=== PATIENT | female | born 1995 | race Hispanic/Latino ===

== ENCOUNTER 2017-11-07 16:03 | Outpatient (CLI) | payer OTHER, SELFPAY | END 2017-11-07 16:04 | disposition home or self-care (01) | LOC: BICRAD 16:03 | PROVIDERS: ATTEND Family Medicine | DX: M25.552 Pain in left hip (principal) ==

== ENCOUNTER 2018-08-08 01:56 | Emergency (ER) | payer OTHER, SELFPAY ==
[2018-08-08 02:31] LABS: #Basophils 0.1 thou/uL (0.0-0.2); #Eosinphils 0.2 thou/uL (0.0-0.7); #Lymphocytes 3.8 thou/uL (1.20-3.40); #Monocytes 0.6 thou/uL (0.11-0.59); #Neutrophils 11.1 thou/uL (1.40-6.50); %Basophils 0.9 % (0.0-1.0); %Eosinophils 1.2 % (0.0-10.0); %Lymphocytes 23.8 % (21.0-51.0); %Neutrophils 70.1 % (42.0-75.0); Hemoglobin 13.3 g/dL (12.0-16.0); Mean Corpuscular Hemoglobin 25.2 pg (27.0-31.0); Mean Corpuscular Volume 78.7 fL (78.0-98.0); Platelet Count 299 thou/uL (130-400); Red Blood Cell (RBC) Count 5.27 mill/uL (4.20-5.40); White Blood Cell (WBC) Count 15.8 thou/uL (4.8-10.8)
[2018-08-08 02:42] LABS: Bilirubin Negative (Negative); Blood, Urine Trace (Negative); Clarity CLEAR (Clear); Glucose, Urine (Dipstick) Negative (Negative); Leukocyte Negative (Negative); Nitrite Negative (Negative); Protein, Urine (Dipstick) Negative (Neg-Trace); Urobilinogen 0.2 mg/dL (0.2-1.0)
[2018-08-08] MEDS ORDERED: Ketorolac Tromethamine 30 MG/ML VIAL ONE (02:42)
[2018-08-08 02:45] LABS: Bacteria/HPF Rare-Few HPF (None Seen); Hyaline Casts/LPF 0-3 HYALINE CAST LPF (0-3 Hyaline); Squamous Epithelial 0-3 HPF (0-3); WBC/HPF 0-3 HPF (0-3)
[2018-08-08 02:50] LABS: ALT (SGPT) 39 U/L (8-55); AST (SGOT) 26 U/L (5-34); Albumin 3.7 g/dL (3.5-5.0); Alkaline Phosphatase 120 U/L (40-150); Anion Gap 11 mmol/L (10-20); BUN (Urea Nitrogen) 10 mg/dL (7.0-18.7); Bilirubin, Total 0.4 mg/dL (0.2-1.2); Calc. Creatinine Clearance 0 mL/min (70-130); Calcium 9.5 mg/dL (7.8-10.44); Carbon Dioxide 27 mmol/L (22-29); Chloride 103 mmol/L (98-107); Estimated GFR-MDRD Greater than 90; Globulin 4.2 g/dL (2.4-3.5); Glucose 121 mg/dL (70-105); Potassium 4.4 mmol/L (3.5-5.1); Protein, Total 7.9 g/dL (6.0-8.3); Sodium 137 mmol/L (136-145)
--- NOTE | 2018-08-08 08:43 | CT ---
PRELIMINARY REPORT/[facility]/EMERGENTY AFTER-HOURS PROCEDURE CT Abdomen and Pelvis Without Intravenous Contrast EXAM DATE/TIME: 08/08/2018 2:31 AM CLINICAL HISTORY: 23 years old, female; Abdominal pain; Right flank pain that started tonight. Pain after urination. No burning with urination. No fever / chills. No past HX renal stones. TECHNIQUE: Axial computed tomography images of the abdomen and pelvis without intravenous contrast. Coronal reformatted images were created and reviewed. COMPARISON: No relevant prior studies available. FINDINGS: Lower thorax: No acute findings. ABDOMEN: Liver: Normal. No mass. Gallbladder and bile ducts: Normal. No calcified stones. No ductal dilation. Pancreas: Normal. No ductal dilation. Spleen: Normal. No splenomegaly. Adrenals: Normal. No mass. Kidneys and ureters: Normal. No hydronephrosis. No calcified renal or ureteral stones. Stomach and bowel: Normal. No obstruction. No mucosal thickening. Appendix: Normal appendix. PELVIS: Bladder: Unremarkable as visualized. Reproductive: Unremarkable as visualized. ABDOMEN and PELVIS: Intraperitoneal space: Normal. No free air. No significant fluid collection. Bones/joints: No acute fracture. No dislocation. Soft tissues: Posterior subcutaneous edema in the lumbar region. Bilateral areas of subcutaneous dimitri a. Vasculature: Normal. No abdominal aortic aneurysm. Lymph nodes: Normal. No enlarged lymph nodes. IMPRESSION: No acute intra-abdominal or pelvic process. Thank you for allowing us to participate in the care of your patient. Dictated and Authenticated by: Dominick Espinosa MD 08/08/2018 3:11 AM Central Time ([place]) FINAL REPORT CT ABDOMEN AND PELVIS WITHOUT IV CONTRAST: I agree with the preliminary report given by Dr. Dominick Espinosa of [facility]. POS: [facility]
== END 2018-08-08 04:10 | disposition home or self-care (01) ==
LOC: ERS 01:56
DX: R10.9 Unspecified abdominal pain (principal)
CPT/HCPCS: 74176; 80053; 81003; 81015; 85025; 96361; 96374; J1885

== ENCOUNTER 2019-05-29 20:56 | Emergency (ER) | payer SELFPAY ==
[2019-05-29 21:59] LABS: #Basophils 0.1 thou/uL (0.0-0.2); #Eosinphils 0.1 thou/uL (0.0-0.7); #Lymphocytes 3.1 thou/uL (1.20-3.40); #Monocytes 0.6 thou/uL (0.11-0.59); #Neutrophils 10.5 thou/uL (1.40-6.50); %Basophils 0.4 % (0.0-1.0); %Lymphocytes 21.4 % (21.0-51.0); %Neutrophils 73.1 % (42.0-75.0); Hemoglobin 11.9 g/dL (12.0-16.0); Mean Corpuscular HGB CONC 33.5 g/dL (32.0-36.0); Mean Corpuscular Hemoglobin 25.5 pg (27.0-31.0); Mean Corpuscular Volume 76.2 fL (78.0-98.0); Platelet Count 290 thou/uL (130-400); RBC Distribution Width 14.3 % (11.5-14.5); Red Blood Cell (RBC) Count 4.67 mill/uL (4.20-5.40); White Blood Cell (WBC) Count 14.4 thou/uL (4.8-10.8)
[2019-05-29] MEDS ORDERED: HYDROcodone/Acetaminophen 10/325 mg Tablet ONE (22:06)
--- NOTE | 2019-05-29 22:14 | RAD ---
Chest one view HISTORY: Chest pain. Abscess. FINDINGS: Cardiac silhouette is magnified by projection. Pulmonary vasculature is unremarkable. Media stinum is midline. No lobar consolidation or evidence of pneumothorax. IMPRESSION: No active cardiopulmonary abnormalities are demonstrated.
[2019-05-29 22:23] LABS: ALT (SGPT) 21 U/L (8-55); AST (SGOT) 14 U/L (5-34); Albumin 3.6 g/dL (3.5-5.0); Alkaline Phosphatase 123 U/L (40-150); Anion Gap 12 mmol/L (10-20); BUN (Urea Nitrogen) 12 mg/dL (7.0-18.7); Bilirubin, Total 0.2 mg/dL (0.2-1.2); Calc. Creatinine Clearance 0 mL/min (70-130); Calcium 9.4 mg/dL (7.8-10.44); Carbon Dioxide 26 mmol/L (22-29); Chloride 102 mmol/L (98-107); Estimated GFR-MDRD 73; Globulin 3.9 g/dL (2.4-3.5); Glucose 99 mg/dL (70-105); Lipase 21 U/L (8-78); Potassium 3.4 mmol/L (3.5-5.1); Protein, Total 7.5 g/dL (6.0-8.3); Sodium 137 mmol/L (136-145)
[2019-05-29 22:28] LABS: BHCG - Serum Negative (NEGATIVE); Pregs Control Background? CLEAR/WHITE (CLR/WHITE); Pregs Control Bar Appear? YES (CONTROL BAR)
[2019-05-30] MEDS ORDERED: Sulfameth/Trimethoprim DS 800-160mg TAB ONE (00:11)
== END 2019-05-30 00:20 | disposition home or self-care (01) ==
LOC: ERS 20:56
DX: L02.416 Cutaneous abscess of left lower limb (principal); F17.210 Nicotine dependence, cigarettes, uncomplicated
CPT/HCPCS: 71045; 80053; 82550; 83690; 84484; 84703; 85025; 93005

== ENCOUNTER 2019-05-30 23:49 | Observation (INO) | payer SELFPAY ==
[2019-05-31 01:46] LABS: #Basophils 0.1 thou/uL (0.0-0.2); #Eosinphils 0.1 thou/uL (0.0-0.7); #Monocytes 0.7 thou/uL (0.11-0.59); %Basophils 0.6 % (0.0-1.0); %Eosinophils 0.6 % (0.0-10.0); %Lymphocytes 25.4 % (21.0-51.0); %Monocytes 4.2 % (0.0-10.0); %Neutrophils 69.2 % (42.0-75.0); Hemoglobin 12.2 g/dL (12.0-16.0); Mean Corpuscular HGB CONC 33.7 g/dL (32.0-36.0); Mean Corpuscular Hemoglobin 26.1 pg (27.0-31.0); Mean Corpuscular Volume 77.5 fL (78.0-98.0); Mean Platelet Volume 7.5 fL (7.4-10.4); Platelet Count 320 thou/uL (130-400); RBC Distribution Width 14.4 % (11.5-14.5); Red Blood Cell (RBC) Count 4.66 mill/uL (4.20-5.40); White Blood Cell (WBC) Count 15.9 thou/uL (4.8-10.8)
[2019-05-31 02:12] LABS: ALT (SGPT) 21 U/L (8-55); AST (SGOT) 15 U/L (5-34); Albumin 3.6 g/dL (3.5-5.0); Alkaline Phosphatase 124 U/L (40-150); Anion Gap 14 mmol/L (10-20); BUN (Urea Nitrogen) 10 mg/dL (7.0-18.7); Bilirubin, Total 0.2 mg/dL (0.2-1.2); Calc. Creatinine Clearance 0 mL/min (70-130); Calcium 9.8 mg/dL (7.8-10.44); Carbon Dioxide 25 mmol/L (22-29); Chloride 102 mmol/L (98-107); Estimated GFR-MDRD 63; Glucose 88 mg/dL (70-105); Potassium 3.9 mmol/L (3.5-5.1); Protein, Total 7.6 g/dL (6.0-8.3); Sodium 137 mmol/L (136-145)
[2019-05-31] MEDS ORDERED: Vancomycin HCl 1.5 GM in Sodium Chloride 0.9% 250 ML 300 ML IVPB SCH (03:30)
[2019-05-31] MEDS ORDERED: Piperacillin/Tazobactam 4.5 GM in Sodium Chloride 0.9% 100 ML IVPB SCH (03:30)
[2019-05-31 07:13] VITALS: BMI 51.2
[2019-05-31] MEDS ORDERED: Senokot S 8.6-50 MG TAB PO PRN (11:46)
[2019-05-31] MEDS ORDERED: Guaifenesin DM 100-10/5 ML UDCUP PO PRN (11:46)
[2019-05-31] MEDS ORDERED: Morphine 2 MG/ML SYRINGE SLOW IVP PRN (11:47)
--- NOTE | 2019-05-31 13:41 | ULT ---
EXAM: Soft tissue ultrasound of the left comer HISTORY: Open wound anterior to the comer COMPARISON: None FINDINGS: Diffuse soft tissue swelling is seen. Edema is seen within the soft tissues. No focal fluid collection is identified. IMPRESSION: Edema without focal drainable fluid collection.
[2019-05-31] MEDS: Sodium Chloride 0.9% 1,000 ML IV SCH ×2 (14:17→22:45)
[2019-05-31] MEDS: Piperacillin/Tazobactam 3.375 GM in Sodium Chloride 0.9% 100 ML IVPB SCH ×3 (14:29→23:51)
[2019-05-31] MEDS: Ibuprofen 200 MG TAB PO SCH ×2 (14:34→21:24)
--- NOTE | 2019-05-31 15:13 | HP ---
REASON FOR ADMISSION: Left knee abscess with cellulitis and failed outpatient treatment. HISTORY OF PRESENTING ILLNESS: The patient gives history of having developed a pimple like small nodule beneath her left knee. This progressively got worse. The initial onset was one week back. It spontaneously ruptured with yellowish purulent discharge. She in fact came to emergency room on the 3rd of this month and was given a prescription for Bactrim. The patient says that the pain, swelling, and redness got worse to the point that this was throbbing badly, she came back to the emergency room. She was told to come back to ER if it gets worse, which it got and she came to ER. No complaints of cough or fever. PAST MEDICAL AND SURGICAL HISTORY: Obesity. CURRENT MEDICATIONS: Bactrim Double Strength one tablet twice daily from the 3rd. PERSONAL HISTORY: Smokes and drinks on social occasions. Does not abuse drugs. FAMILY HISTORY: Both parents are living and have diabetes. ALLERGIES: NO KNOWN DRUG ALLERGIES. REVIEW OF SYSTEMS: CONSTITUTIONAL: Negative for weight loss or gain, ability to conduct usual activities. SKIN: Negative for rash, itching. EYES: Negative for double vision, pain. ENT/MOUTH: Negative for nose bleeding, neck stiffness, pain, tenderness. CARDIOVASCULAR: Negative for palpitations, dyspnea on exertion, orthopnea. RESPIRATORY: Negative for shortness of breath, wheezing, cough, hemoptysis, fever or night sweats. GASTROINTESTINAL: Negative for poor appetite, abdominal pain, heartburn, nausea , vomiting, constipation, or diarrhea. GENITOURINARY: Negative for urgency, frequency, dysuria, nocturia. MUSCULOSKELETAL: Negative for pain, swelling. NEUROLOGIC/PSYCHIATRIC: Negative for anxiety, depression. ALLERGY/IMMUNOLOGIC: Negative for skin rash, bleeding tendency. CODE STATUS: Full. PHYSICAL EXAMINATION: GENERAL: The patient is a 24-year-old female, who is currently not in any acute distress. VITAL SIGNS: Blood pressure 106/70, pulse 90 per minute, respiratory rate 18 per minute, temperature 97.1 degrees Fahrenheit, saturating 98% on room air. NECK: Supple. No elevated JVD. HEENT: Eyes; extraocular muscles intact. Pupils reacting to light. Oral cavity, mucous membranes are moist. No exudates or congestion. CARDIOVASCULAR: S1 and S2 heard. Regular rhythm. RESPIRATORY: Air entry 1+ bilateral. No rales or rhonchi. ABDOMEN: Soft. Bowel sounds heard. No tenderness, rigidity, or guarding. EXTREMITIES: Left leg beneath the knee, there is a 3 x 3 cm abscess, which is opened up and currently the opening is crusted with dark serosanguineous material. She has erythema all around the upper leg with edema as well. On further probing, there is no discharge noted. VASCULAR SYSTEM: 2+ bilateral. No ischemic ulcerations or gangrene. CENTRAL NERVOUS SYSTEM: No gross focal deficits noted. The patient is alert, awake, oriented well. PSYCHIATRIC: The patient's mood is euthymic. No hallucinations or delusions. LABORATORY DATA: White count of 15, H and H 12 and 36, platelet count 320, MCV is 77 with 69% neutrophils. BUN 10, creatinine 1.0. Serum test is negative. Albumin is 3.6. Ultrasound, soft tissue of the left knee area shows no drainable fluid collection. There is edema seen. CLINICAL IMPRESSION AND PLAN: The patient will be under observation on med/surg floor for left knee abscess with cellulitis. She will be placed on vancomycin and Zosyn. Cultures were not obtained in the ER and we will try to obtain the same. She will be on Motrin 3 times daily, morphine p.r.n. She is currently hemodynamically stable. Her ultrasound Doppler of the left knee abscess area has not revealed any collection of pus or abscess. We will continue to closely monitor her on med/ surg floor and if she were to get better, she will be switched back to her Bactrim which she has taken only two tablets so far. Job ID: [id number] [facility]
--- NOTE | 2019-05-31 20:21 | CON ---
DATE OF CONSULTATION: 05/31/2019 HISTORY OF PRESENT ILLNESS: Zhanna Leon is a 24-year-old morbidly obese female, 5 feet 2 inches, 51 BMI, 279 pounds, admitted by hospitalist, placed on vancomycin and Zosyn for left leg abscess cellulitis. Soft tissue ultrasound performed on admission today revealed edema without focal drainable abscess. She has an eschar below her left knee. Her white count is 15, hemoglobin 12. Basic metabolic profile is normal. Plan is to debride this at the bedside, and she will be discharged to home on the same day on oral antibiotics. ALLERGIES: NONE. SOCIAL HISTORY: Tobacco, none. Alcohol, none. MEDICATIONS: Bactrim b.i.d. PAST MEDICAL HISTORY: Noncontributory except for morbid obesity. PAST SURGICAL HISTORY: Noncontributory. PHYSICAL EXAMINATION: VITAL SIGNS: Height 5 feet 2 inches, 279 pounds, 51 BMI, temperature 97.1, pulse 83, and blood pressure 103/58. HEAD, EARS, EYES, NOSE, AND THROAT: Unremarkable. LUNGS: Clear to auscultation. CARDIAC: Regular rate and rhythm. No murmur or gallop. ABDOMEN: Soft, nontender, obese. EXTREMITIES: Palpable femoral, popliteal, and pedal pulses. LABORATORY DATA: Basic metabolic profile is normal. Glucose 88. left leg reveals eschar with surrounding cellulitis below her knee. ASSESSMENT AND PLAN: Left leg infection with eschar. We will plan bedside debridement. She could be discharged to home after the debridement. She can wash the wound with soap and water in the bath or shower and place a saline wet-to-dry dressings, which I will demonstrate. She can be placed on oral antibiotics from discharge. Indeed, she does not remember what happened to this or trauma, but has been ongoing for a week. Job ID: [id number]
[2019-05-31] MEDS ORDERED: Vancomycin HCl 1 GM in Premix Bag 1 BAG IVPB SCH (21:00)
[2019-05-31] MEDS: Famotidine 20 MG TAB PO SCH (21:24)
[2019-05-31] MEDS: Acetaminophen 325 MG TAB PO PRN (21:24)
[2019-06-01] MEDS ORDERED: Lidocaine 1% w/Epinephrine 1:200K 30 ML VIAL FS SCH ×2 (02:45→13:15)
[2019-06-01] MEDS: Acetaminophen 325 MG TAB PO PRN (05:38)
[2019-06-01] MEDS: Piperacillin/Tazobactam 3.375 GM in Sodium Chloride 0.9% 100 ML IVPB SCH ×2 (05:38→12:33)
[2019-06-01 06:46] LABS: #Eosinphils 0.1 thou/uL (0.0-0.7); #Lymphocytes 2.7 thou/uL (1.20-3.40); #Monocytes 0.5 thou/uL (0.11-0.59); #Neutrophils 7.8 thou/uL (1.40-6.50); %Basophils 0.3 % (0.0-1.0); %Eosinophils 1.2 % (0.0-10.0); %Monocytes 4.8 % (0.0-10.0); %Neutrophils 69.7 % (42.0-75.0); Hemoglobin 12.4 g/dL (12.0-16.0); Mean Corpuscular HGB CONC 32.4 g/dL (32.0-36.0); Mean Platelet Volume 7.9 fL (7.4-10.4); Platelet Count 285 thou/uL (130-400); RBC Distribution Width 14.4 % (11.5-14.5); Red Blood Cell (RBC) Count 4.95 mill/uL (4.20-5.40); White Blood Cell (WBC) Count 11.1 thou/uL (4.8-10.8)
[2019-06-01] MEDS ORDERED: VANCOMYCIN IVPB PRN (07:04)
[2019-06-01 07:05] LABS: Anion Gap 11 mmol/L (10-20); BUN (Urea Nitrogen) 12 mg/dL (7.0-18.7); Calc. Creatinine Clearance 265 mL/min (70-130); Calcium 9.4 mg/dL (7.8-10.44); Carbon Dioxide 25 mmol/L (22-29); Chloride 105 mmol/L (98-107); Estimated GFR-MDRD Greater than 90; Glucose 96 mg/dL (70-105); Potassium 3.9 mmol/L (3.5-5.1); Sodium 137 mmol/L (136-145)
[2019-06-01] MEDS ORDERED: Enoxaparin Sodium 40 MG/0.4 ML SYRINGE SC SCH (09:00)
[2019-06-01] MEDS: Famotidine 20 MG TAB PO SCH (09:26)
[2019-06-01] MEDS: Ibuprofen 200 MG TAB PO SCH ×2 (09:26→15:27)
[2019-06-01 12:58] VITALS: TEMP 98
[2019-06-01] MEDS ORDERED: Lidocaine 1% w/Epinephrine 1:100K 30 ML VIAL FS SCH (13:15)
[2019-06-01 13:22] VITALS: BP 121/71
[2019-06-01] MEDS ORDERED: Lidocaine 1% w/Epinephrine 1:100K 20 ML VIAL FS SCH (13:30)
--- NOTE | 2019-06-03 08:47 | DIS ---
DATE OF ADMISSION: 05/31/2019 DATE OF DISCHARGE: 06/01/2019 DISCHARGE DISPOSITION: Home. PRIMARY DISCHARGE DIAGNOSES: Left below-knee abscess with cellulitis and failed outpatient treatment and obesity. PROCEDURES DONE DURING HOSPITALIZATION: Soft tissue ultrasound of the left knee area obtained shows edema without focal drainable fluid collection. The wound cultures grew Staph aureus, which is sensitive to Augmentin and Bactrim. Blood cultures x2, no growth. Had a white count of 15 on the day of admission with discharge numbers of 11, H and H 12 and 38, platelet count 285. BUN 12, creatinine 0.6. Serum glucose was 96. DISCHARGE MEDICATIONS: 1. Augmentin 875 mg p.o. twice daily for 10 days. 2. Motrin p.r.n. for pain. ALLERGIES: NO KNOWN DRUG ALLERGIES. INPATIENT CONSULT: Dr. Godinez for General Surgery. DISCHARGE PLAN: The patient will follow up with primary care physician in 1 week. BRIEF COURSE DURING HOSPITALIZATION: The patient initially came to ER with findings suggestive of left knee abscess with cellulitis. She had come in a day earlier to ER and was given Bactrim, which the patient took only two tablets prior to this pain and swelling in the area getting worse. She has had incision and drainage done in the ER. Soft tissue ultrasound obtained showed no drainable abscess. She has been advised to continue Augmentin for a total of 10 days along with Motrin p.r.n. for pain. She was evaluated by Dr. Godinez as well during her stay here. She is hemodynamically stable, ambulating and eating well prior to discharge. Please note, I have seen and examined the patient on the day of discharge. Job ID: [id number] [facility]
--- NOTE | 2019-06-04 10:28 | OP ---
DATE OF PROCEDURE: 06/01/2019 PREOPERATIVE DIAGNOSIS: Infected wound, left leg, just below the knee anteriorly. POSTOPERATIVE DIAGNOSES: Infected wound, left leg, just below the knee anteriorly. PROCEDURE PERFORMED: Sharp debridement of necrotic eschar skin, 2 cm diameter and underlying subcutaneous tissue and hematoma. No purulence noted to culture. ANESTHESIA: 1% Xylocaine with epinephrine. DESCRIPTION OF PROCEDURE: With the patient at bedside, the wound over the anterior lower leg below the knee was prepared with ChloraPrep. Local anesthetic was infiltrated in the skin and subcutaneous tissue. The eschar 2 cm in diameter was removed with sharp dissection, removing underlying necrotic tissue back to healthy tissue and undermined somewhat, but there was no purulence. Wound left open for healing by secondary intention and saline wet-to-dry dressings demonstrated to the family and covered the wound and covered with Coban. The patient can be discharged home with dressing instructions, daily washing the wound with soap and water in the bath or shower, remove the dressing, wash the wound with soap and water in the bath or shower and apply a saline wet-to-dry dressing. This was demonstrated to the family and the patient. She can follow up in my office in 2 weeks. Job ID: [id number]
== END 2019-06-01 15:26 | disposition home or self-care (01) ==
LOC: ERS 23:49 → SJJU 05-31 07:01
PROVIDERS: ADMIT Hospitalist; ATTEND Hospitalist
PROC: 0HBLXZZ Excision of Left Lower Leg Skin, External Approach (ICD-10-PCS; principal; 2019-06-01)
DX: L03.116 Cellulitis of left lower limb (principal); F17.210 Nicotine dependence, cigarettes, uncomplicated; E66.9 Obesity, unspecified; Z68.43 Body mass index [BMI] 50.0-59.9, adult
CPT/HCPCS: 36415; 76999; 80048; 80053; 83605; 85025; 87040; 87070; 87077; 87186; 87205; 96361; 96365; 96366; 96367; 96372; 96375; 99406; G0378; J1650; J2270; J2543; J3370; J3490; J7050

== ENCOUNTER 2019-08-08 22:14 | Emergency (ER) | payer SELFPAY ==
[2019-08-08] MEDS ORDERED: Ketorolac Tromethamine 30 MG/ML VIAL ONE (22:39)
[2019-08-08] MEDS ORDERED: Adacel (T-DAP) 0.5 ML SYRINGE ONE (22:45)
[2019-08-08] MEDS ORDERED: Ondansetron PF 4 MG/2 ML Vial ONE (22:45)
[2019-08-08] MEDS ORDERED: Morphine 2 MG/ML SYRINGE ONE (22:47)
--- NOTE | 2019-08-08 22:51 | RAD ---
Left lower leg 2 views HISTORY: Fall. Leg injury. FINDINGS: Mildly comminuted transverse fracture of the mid tibial shaft width minimal apex anterior a ngulation. Minimal medial displacement of the distal fragment. Fibula is intact. IMPRESSION: Left tibial fracture.
[2019-08-08] MEDS ORDERED: Fentanyl 100 MCG/2 ML VIAL ONE (23:26)
== END 2019-08-09 00:52 | disposition home or self-care (01) ==
LOC: ERS 22:14
DX: S82.221A Displaced transverse fracture of shaft of right tibia, initial encounter for closed fracture (principal); F17.210 Nicotine dependence, cigarettes, uncomplicated; Z23 Encounter for immunization; W19.XXXA Unspecified fall, initial encounter
CPT/HCPCS: 90715; J1885; J2270; J2405; J3010

== ENCOUNTER 2019-08-15 06:02 | Inpatient (IN) | payer OTHER, SELFPAY ==
[2019-08-15 07:07] LABS: BHCG - Serum Negative (NEGATIVE); Pregs Control Background? CLEAR/WHITE (CLR/WHITE); Pregs Control Bar Appear? YES (CONTROL BAR)
[2019-08-15 07:10] LABS: Prothrombin Time 12.8 SEC (12.0-14.7)
[2019-08-15 07:22] LABS: #Basophils 0.1 thou/uL (0.0-0.2); #Eosinphils 0.2 thou/uL (0.0-0.7); #Lymphocytes 3.5 thou/uL (1.20-3.40); #Monocytes 0.9 thou/uL (0.11-0.59); #Neutrophils 6.7 thou/uL (1.40-6.50); %Basophils 0.8 % (0.0-1.0); %Eosinophils 1.8 % (0.0-10.0); %Lymphocytes 30.6 % (21.0-51.0); %Monocytes 7.5 % (0.0-10.0); %Neutrophils 59.3 % (42.0-75.0); ALT (SGPT) 33 U/L (8-55); AST (SGOT) 20 U/L (5-34); Albumin 3.6 g/dL (3.5-5.0); Alkaline Phosphatase 113 U/L (40-110); Anion Gap 12 mmol/L (10-20); BUN (Urea Nitrogen) 16 mg/dL (7.0-18.7); Bilirubin, Total 0.2 mg/dL (0.2-1.2); Calc. Creatinine Clearance 0 mL/min (70-130); Calcium 9.4 mg/dL (7.8-10.44); Carbon Dioxide 27 mmol/L (22-29); Chloride 103 mmol/L (98-107); Estimated GFR-MDRD Greater than 90; Globulin 3.9 g/dL (2.4-3.5); Glucose 97 mg/dL (70-105); Hemoglobin 12.3 g/dL (12.0-16.0); Mean Corpuscular HGB CONC 32.7 g/dL (32.0-36.0); Mean Corpuscular Hemoglobin 25.3 pg (27.0-31.0); Mean Corpuscular Volume 77.5 fL (78.0-98.0); Mean Platelet Volume 8.1 fL (7.4-10.4); Platelet Count 289 thou/uL (130-400); Potassium 4.2 mmol/L (3.5-5.1); Protein, Total 7.5 g/dL (6.0-8.3); RBC Distribution Width 14.3 % (11.5-14.5); Red Blood Cell (RBC) Count 4.87 mill/uL (4.20-5.40); Sodium 138 mmol/L (136-145); White Blood Cell (WBC) Count 11.3 thou/uL (4.8-10.8)
[2019-08-15] MEDS ORDERED: hydrALAZINE 20 MG/ML VIAL SLOW IVP PRN (07:24)
[2019-08-15] MEDS ORDERED: Morphine 4 MG/ML VIAL SLOW IVP PRN (07:24)
[2019-08-15] MEDS ORDERED: Insulin Regular 300 UNITS/3 ML VIAL SC PRN (07:24)
[2019-08-15] MEDS ORDERED: Ondansetron PF 4 MG/2 ML Vial IVP PRN (07:24)
[2019-08-15] MEDS ORDERED: Dextrose 5% in Water 1,000 ML IV PRN (07:24)
[2019-08-15] MEDS ORDERED: Promethazine HCl 25 MG/ML VIAL SLOW IVP PRN (07:24)
[2019-08-15] MEDS ORDERED: Dextrose 50% Abboject 50 ML SYRINGE SLOW IVP PRN (07:24)
[2019-08-15] MEDS ORDERED: Cyclobenzaprine 10 MG TAB PO PRN (07:27)
[2019-08-15] MEDS ORDERED: traMADol HCl 50 MG TAB PO PRN (07:27)
[2019-08-15] MEDS ORDERED: CEFAZOLIN 2 GM in Premix Bag 1 BAG IVPB SCH (07:45)
--- NOTE | 2019-08-15 07:46 | RAD ---
2 view chest: CLINICAL HISTORY: Cough/Fever COMPARISON: None FINDINGS: There is shallow depth of inspiration, which accentuates vasculature, and limits visualization at the lung bases. Cardiac silhouette is accentuated by technique. No acute osseous abnormality. IMPRESSION: Shallow depth of inspiration, limiting assessment, as above. Follow-up may be obtained with deeper in spiration, 2 view chest series.
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
[2019-08-15] MEDS: Acetaminophen 500 MG TAB PO SCH ×3 (12:25→20:18)
[2019-08-15] MEDS: Ibuprofen 800 MG TAB PO SCH ×2 (12:25→15:08)
[2019-08-15] MEDS: Gabapentin 100 MG CAP PO SCH ×3 (12:26→20:19)
[2019-08-15] MEDS: Senokot S 8.6-50 MG TAB PO SCH ×2 (12:26→20:19)
[2019-08-15] MEDS: Polyethylene Glycol 3350 17 GM Packet PO SCH (12:26)
[2019-08-15 12:50] VITALS: BMI 49.6
[2019-08-15 14:36] LABS: Amphetamine Not Detected (NotDetected); Barbiturates Screen Not Detected (NotDetected); Benzodiazepine Screen Not Detected (NotDetected); Cocaine Metabolite Screen Not Detected (NotDetected); Medtox Control Line Valid? VALID (VALID); Medtox Reader # READER 4; Methadone Not Detected (NotDetected); Methamphetamine Not Detected (NotDetected); Opiate Screen Detected (NotDetected); Oxycodone Screen Not Detected (NotDetected); Phencyclidine (PCP) Not Detected (NotDetected); THC/Cannabinoid Screen Not Detected (NotDetected); Tricyclic Screen Not Detected (NotDetected)
[2019-08-15 14:44] LABS: Bacteria/HPF None Seen HPF (None Seen); Bilirubin Negative (Negative); Blood, Urine Negative (Negative); Clarity Clear (Clear); Glucose, Urine (Dipstick) Normal (Negative); Leukocyte Negative Leu/uL (Negative); Mucous/LPF 1+ LPF (<2+); Nitrite Negative (Negative); Protein, Urine (Dipstick) 30 mg/dL (Neg-Trace)
[2019-08-15 14:45] LABS: Urine Culture Reflex No No
[2019-08-15] MEDS: Dicyclomine 20 MG TAB PO SCH (16:44)
[2019-08-16] MEDS: Sodium Chloride 0.9% 1,000 ML IV SCH ×4 (00:05→23:25)
--- NOTE | 2019-08-16 00:05 | PRG ---
DATE OF SERVICE: SUBJECTIVE: Patient remains on the surgical floor. Patient is awake, alert, in no distress. Patient reports that her pain is well controlled at this time. PLAN: Patient will be n.p.o. at midnight with maintenance IV fluids. Orthopedic plans to take the patient to the OR tomorrow for repair of her left tibial shaft fracture. We will continue patient's pain regimen. Let patient work with physical therapy postop. If patient's pain is well controlled and able to safely ambulate postop, patient should be able to be discharged home. Plan was discussed with the patient who agrees. Job ID: [id number]
[2019-08-16] MEDS: Ibuprofen 800 MG TAB PO SCH ×5 (00:06→23:25)
[2019-08-16] MEDS: Acetaminophen 500 MG TAB PO SCH ×4 (01:44→20:39)
[2019-08-16] MEDS: Dicyclomine 20 MG TAB PO SCH ×3 (06:39→16:56)
[2019-08-16] MEDS: Gabapentin 100 MG CAP PO SCH ×3 (08:17→20:34)
[2019-08-16] MEDS: Senokot S 8.6-50 MG TAB PO SCH ×2 (08:18→20:39)
[2019-08-16] MEDS: Polyethylene Glycol 3350 17 GM Packet PO SCH (08:18)
[2019-08-16] MEDS: DESOGESTREL ETHINYL ESTRADIOL PO SCH (08:28)
[2019-08-16] MEDS ORDERED: FLU VACC QS2019-20(6MOS UP)/PF 60 MCG/0.5 ML SYRINGE IM ONE (09:00)
[2019-08-16] MEDS ORDERED: PHENYLEPHRINE-NS 100 MCG/ML 10 ML SYRINGE ONE (09:53)
[2019-08-16] MEDS ORDERED: Ondansetron PF 4 MG/2 ML Vial ONE (09:53)
[2019-08-16] MEDS ORDERED: PROPOFOL 200 MG/20 ML VIAL ONE (09:53)
[2019-08-16] MEDS ORDERED: Rocuronium Bromide 10 MG/ML (10ML VIAL) ONE (09:53)
[2019-08-16] MEDS ORDERED: Lidocaine 1% PF 5 ML VIAL ONE (09:53)
[2019-08-16] MEDS ORDERED: Dexamethasone 20 MG/5 ML VIAL ONE (09:53)
[2019-08-16] MEDS ORDERED: Glycopyrrolate 0.2 MG/ML 5 ML SYRINGE ONE (09:53)
[2019-08-16] MEDS ORDERED: Succinylcholine Chloride 20 MG/ML 10 ml SYRINGE FS ONE (09:53)
[2019-08-16] MEDS ORDERED: Ketorolac Tromethamine 30 MG/ML VIAL ONE (09:53)
[2019-08-16] MEDS ORDERED: HYDROmorphone 2 MG/ML VIAL ONE (12:31)
[2019-08-16] MEDS ORDERED: Phenylephrine HCL 10 MG/ML VIAL ONE (13:16)
--- NOTE | 2019-08-16 14:21 | RAD ---
LEFT LEG TWO VIEWS: HISTORY: Left tibial fracture. FINDINGS: Five spot fluoroscopic intraoperative images of the left leg demonstrate interval reduction and inter nal fixation of the left tibial shaft fracture noted on 08/08/2019. POS: [facility]
[2019-08-16] MEDS ORDERED: Promethazine HCl 25 MG/ML VIAL SLOW IVP PRN (14:23)
[2019-08-16] MEDS ORDERED: Ondansetron HCl/PF 4 MG/2 ML Vial IVP PRN (14:23)
[2019-08-16] MEDS ORDERED: Meperidine HCl/PF 25 MG/ML VIAL SLOW IVP PRN (14:23)
[2019-08-16] MEDS ORDERED: HYDROmorphone 2 MG/ML VIAL SLOW IVP PRN (14:23)
[2019-08-16] MEDS ORDERED: HYDROmorphone 0.5 MG/0.5 ML SYRINGE ONE (14:49)
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
[2019-08-16] MEDS: traMADol HCl 50 MG TAB PO PRN (16:20)
[2019-08-16] MEDS: Enoxaparin Sodium 30 MG/0.3 ML SYRINGE SC SCH (20:40)
[2019-08-16] MEDS: CEFAZOLIN 2 GM in Premix Bag 1 BAG IVPB SCH (22:14)
--- NOTE | 2019-08-17 01:46 | PRG ---
DATE OF SERVICE: SUBJECTIVE: The patient remains on the surgical floor. Patient is postop repair of her left midshaft tibia fracture earlier today. Patient is currently resting comfortably and pain is well controlled. Patient is requiring oxygen postop. OBJECTIVE: VITAL SIGNS: Afebrile, SpO2 is 93% on 2 L nasal cannula, pulse 82, and blood pressure 102/71. RESPIRATORY: Equal chest rise and fall, no respiratory distress. DIAGNOSTICS: Echocardiogram. Impression, ejection fraction visually estimated at 55 to 60, normal diastolic function, mild mitral regurg, mild tricuspid regurg. There is limited visualization due to body habitus. PLAN: Continue supportive care and pain regimen. We will have Physical Therapy work with the patient tomorrow. Continue chemical VTE prophylaxis. Job ID: [id number] [facility]
[2019-08-17] MEDS: Acetaminophen 500 MG TAB PO SCH ×3 (03:10→13:56)
[2019-08-17 05:29] LABS: #Monocytes 0.6 thou/uL (0.11-0.59); #Neutrophils 9.1 thou/uL (1.40-6.50); %Basophils 0.2 % (0.0-1.0); %Eosinophils 0.2 % (0.0-10.0); %Lymphocytes 16.8 % (21.0-51.0); %Monocytes 4.8 % (0.0-10.0); %Neutrophils 78.1 % (42.0-75.0); Mean Corpuscular HGB CONC 32.7 g/dL (32.0-36.0); Mean Corpuscular Hemoglobin 25.4 pg (27.0-31.0); Mean Corpuscular Volume 77.6 fL (78.0-98.0); Mean Platelet Volume 8.2 fL (7.4-10.4); Platelet Count 299 thou/uL (130-400); RBC Distribution Width 14.1 % (11.5-14.5); Red Blood Cell (RBC) Count 4.72 mill/uL (4.20-5.40); White Blood Cell (WBC) Count 11.7 thou/uL (4.8-10.8)
[2019-08-17 05:52] LABS: Anion Gap 10 mmol/L (10-20); BUN (Urea Nitrogen) 9 mg/dL (7.0-18.7); Calc. Creatinine Clearance 274 mL/min (70-130); Calcium 9.2 mg/dL (7.8-10.44); Carbon Dioxide 27 mmol/L (22-29); Chloride 106 mmol/L (98-107); Estimated GFR-MDRD Greater than 90; Glucose 127 mg/dL (70-105); Phosphorus 3.9 mg/dL (2.3-4.7); Potassium 4.4 mmol/L (3.5-5.1); Sodium 139 mmol/L (136-145)
[2019-08-17] MEDS: CEFAZOLIN 2 GM in Premix Bag 1 BAG IVPB SCH ×2 (06:29→13:59)
[2019-08-17] MEDS: Dicyclomine 20 MG TAB PO SCH ×2 (06:30→14:05)
[2019-08-17] MEDS: Gabapentin 100 MG CAP PO SCH (08:25)
[2019-08-17] MEDS: Senokot S 8.6-50 MG TAB PO SCH (08:26)
[2019-08-17] MEDS: traMADol HCl 50 MG TAB PO PRN (08:26)
[2019-08-17] MEDS: Ibuprofen 800 MG TAB PO SCH (08:27)
[2019-08-17] MEDS ORDERED: Gabapentin 100 MG CAP PO SCH (10:41)
[2019-08-17] MEDS: Enoxaparin Sodium 30 MG/0.3 ML SYRINGE SC SCH (10:58)
--- NOTE | 2019-08-17 13:45 | DIS ---
DATE OF ADMISSION: 08/15/2019 DATE OF DISCHARGE: 08/17/2019 ADMISSION DIAGNOSES: Ground level fall while intoxicated and left tibial shaft fracture. DISCHARGE DIAGNOSES: Ground level fall while intoxicated and left tibial shaft fracture. CONSULTING PHYSICIANS: Dr. Dee of Orthopedic Surgery. PROCEDURES: The patient went to the OR on August 16, 2019, and had a fixation of the left tibial shaft fracture. HOSPITAL COURSE: The patient is a 24-year-old female presenting to the emergency department on August 15, 2019 complaining of burning pain to her left comer. There was a known tibial plateau fracture for which she sustained a ground level fall while intoxicated on August 08, 2019. At that time, the patient's lower extremity was splinted and she was told to follow up with Orthopedic Surgery. She had now re-presented with pain. Subsequently, she was admitted and went to the OR the next day. At the time of discharge, the patient's pain was well controlled. She was tolerating regular diet. She was working with Physical and Occupational Therapy and voiding without difficulties. DISCHARGE DISPOSITION: Home. DISCHARGE CONDITION: Satisfactory. PHYSICAL EXAMINATION: VITAL SIGNS: Temperature 97.7, pulse rate 86, respirations are 16, oxygen saturation 95% on room air, and blood pressure 100/65. GENERAL: A well-appearing middle-aged female, lying in bed with no signs of acute distress. PULMONARY: Equal chest rise and fall. No signs of acute respiratory distress. CARDIAC: Regular rate and rhythm. No murmurs, gallops, or rubs. GASTROINTESTINAL: Soft, nontender, and nondistended. EXTREMITIES: 2+ pulses in all extremities. Gross motor and sensation intact. Splint to left lower extremity is clean, dry, and intact. NEUROLOGIC: GCS is 15. DISCHARGE INSTRUCTIONS: The patient was discharged home. Activity as tolerated. She is weightbearing as tolerated to the left lower extremity. She will have a walker and incentive spirometry. DISCHARGE MEDICATIONS: Tylenol, Flexeril, Bentyl, Lovenox, gabapentin, ibuprofen, MiraLAX, and tramadol. FOLLOWUP APPOINTMENTS: The patient will follow up with Dr. Dee. No need for followup with Trauma Surgery. This is a summary of the patient's hospitalization. For full details, please see her medical record in its entirety. Job ID: [id number]
[2019-08-17] MEDS: traMADol HCl 50 MG TAB PO SCH ×2 (13:48→13:57)
[2019-08-17] MEDS: Polyethylene Glycol 3350 17 GM Packet PO SCH (14:26)
[2019-08-17] MEDS: DESOGESTREL ETHINYL ESTRADIOL PO SCH (14:26)
[2019-08-17] MEDS ORDERED: traMADol HCl 50 MG TAB PO SCH (15:00)
[2019-08-17 16:01] VITALS: BP 112/73; TEMP 97.6
--- NOTE | 2019-08-19 14:11 | EKG ---
Test Reason : Blood Pressure : / mmHG Vent. Rate : 082 BPM Atrial Rate : 082 BPM P-R Int : 158 ms QRS Dur : 094 ms QT Int : 384 ms P-R-T Axes : 050 046 026 degrees QTc Int : 448 ms Normal sinus rhythm with sinus arrhythmia Low voltage QRS Borderline ECG Confirmed by GLADIS VAIL (2) on 08/19/2019 2:10:32 PM Referred By: FRITZ CERNA Confirmed By:GLADIS VAIL
--- NOTE | 2019-08-21 08:37 | OP ---
DATE OF PROCEDURE: 08/16/2019 PREOPERATIVE DIAGNOSIS: Left tibial shaft fracture, closed. POSTOPERATIVE DIAGNOSIS: Left tibial shaft fracture, closed. PROCEDURE PERFORMED: Intramedullary nail stabilization of the left tibial shaft. ANESTHESIA: General. CLIENT ASSOCIATE: Deyvi. ESTIMATED BLOOD LOSS: 100 mL. TOURNIQUET TIME: Zero. IMPLANTS: Synthes EX nail 10 x 315 with 3 cross-lock screws. COMPLICATIONS: None. DRAINS: None. SPECIMEN: None. OUTCOME: Near-anatomic alignment. INDICATIONS FOR PROCEDURE: The patient is a 24-year-old lady, status post closed left tibial shaft fracture with mild displacement. The patient has not done well with nonsurgical management. This fracture occurred approximately 5 days before admission. She is not tolerating the splint well and after discussion with the patient including risks and benefits, we decided to proceed with intramedullary nail stabilization to allow for earlier weightbearing on the leg and hopefully to facilitate mobility and healing. Informed consent has been obtained. I believe all questions have been answered. DESCRIPTION OF PROCEDURE: The patient was brought to the operating room and a time-out performed followed by induction of general anesthesia. The patient was positioned supine on the fracture table with the injured extremity held over a bolster with the knee flexed 80 degrees and then traction applied. The well leg was held in extension to allow for AP and lateral C-arm imaging of the left leg. A sterile prep and drape was performed to the left lower extremity. A midline anterior knee incision was made after skin was sharply incised. Dissection was carried down to the underlying peritenon covering the patellar tendon. This was incised in line with the skin incision and then reflected medially and laterally. An approach to the proximal tibia was obtained via the medial side of the patellar tendon. A threaded guidewire was inserted at the starting point and then checked with AP and lateral C-arm imaging to confirm appropriate positioning. Once confirmed, the reamer was passed over this threaded guidewire. Next, a ball-tipped guidewire was passed down the shaft of the tibia, crossing the fracture in the distal tibial metaphysis again checked with AP and lateral C-arm imaging. Once appropriately positioned, reaming was started at 8.5 mm and continued up to 11 mm with cortical chatter at the isthmus occurring at 10 mm of reamer. Following this, a 10 x 315 mm nail was passed over the ball-tipped guidewire. Once delivered to an appropriate depth, the ball-tipped guidewire was removed. Two small stab wounds were made at the distal medial aspect of the lower leg. After skin incised, dissection was carried down bluntly and then, freehand technique was used to place 2 distal cross-lock screws. A third incision was made medially at the proximal end of the tibia and using the outrigger jig, a single dynamic screw was applied without difficulty. Final AP and lateral C-arm images were then obtained that showed acceptable alignment of the fracture and appropriate positioning of the hardware. The small stab wounds were irrigated with bulb syringe and closed with rebekah. Midline anterior knee incision was closed in layers with 0 Vicryl, 2-0 Vicryl, and rebekah following bulb syringe irrigation. Xeroform gauze, Webril, and fiberglass splint was applied to the leg. She was then transferred to recovery room in stable condition. There were no complications. She tolerated the procedure well. Job ID: [id number]
== END 2019-08-17 18:35 | disposition home or self-care (01) | DRG 493 ==
LOC: ERS 06:02 → SURG A 11:32
PROVIDERS: ADMIT Surgery; ATTEND Surgery
PROC: 0QSH36Z Reposition Left Tibia with Intramedullary Internal Fixation Device, Percutaneous Approach (ICD-10-PCS; principal; 2019-08-16)
DX: S82.142A Displaced bicondylar fracture of left tibia, initial encounter for closed fracture (principal); Z68.41 Body mass index [BMI] 40.0-44.9, adult; E11.9 Type 2 diabetes mellitus without complications; E66.01 Morbid (severe) obesity due to excess calories; W18.39XA Other fall on same level, initial encounter
CPT/HCPCS: 36415; 36416; 71045; 76000; 80048; 80053; 80306; 80307; 81001; 83735; 84100; 84703; 85025; 85610; 93005; 93010; 93306; C1713; C1769; J0131; J0690; J1100; J1170; J1650; J1885; J2001; J2370; J2405; J2704